=== PATIENT | male | born 1980 | race Hispanic/Latino ===

== ENCOUNTER 2022-11-26 12:51 | Emergency (ER) | payer SELFPAY ==
[2022-11-26] MEDS ORDERED: FLUORESCEIN SODIUM 1 MG/WRAP ONE (13:13)
[2022-11-26] MEDS ORDERED: TETRACAINE HCL 0.5% 4ML OPTH ONE (13:13)
--- NOTE | 2022-11-26 13:38 | ER ---
Nurse's Notes [facility] Name: Moe Sanford Age: 42 yrs Sex: Male : 1980 Arrival Date: 11/26/2022 Time: 12:51 Bed 12 Private MD: Diagnosis: Injury of conjunctiva and corneal abrasion without foreign body, right eye Presentation: 11/26 13:02 Chief complaint: Patient states: Piece of metal on wood hit his R eye yesterday at 6 ll1 PM. Redness, pain, irritation, draining clear liquid since. No fever. Coronavirus screen: Vaccine status: Patient reports being unvaccinated. Client denies travel out of the [place] in the last 14 days. At this time, the client does not indicate any symptoms associated with coronavirus-19. Ebola Screen: Patient denies travel to an Ebola-affected area in the 21 days before illness onset. Initial Sepsis Screen: Does the patient meet any 2 criteria? No. Patient's initial sepsis screen is negative. Does the patient have a suspected source of infection? Yes: Other: eye. Risk Assessment: Do you want to hurt yourself or someone else? Patient reports no desire to harm self or others. Onset of symptoms was November 25, 2022. 13:02 Method Of Arrival: Ambulatory ll1 13:02 Acuity: KATHYA 2 ll1 Triage Assessment: 13:04 General: Appears uncomfortable, Behavior is calm, cooperative, appropriate for age. ll1 Pain: Complains of pain in right eye Pain currently is 5 out of 10 on a pain scale. Quality of pain is described as aching. EENT: Eyes are tearing on outer aspect of conjuctiva of right eye, iris of right eye and inner aspect of conjuctiva of right eye redness. Reports pain in right eye. Historical: - Allergies: 13:03 No Known Allergies; ll1 - PMHx: 13:03 None; ll1 - PSHx: 13:03 None; ll1 - Immunization history:: Adult Immunizations up to date. - Social history:: Smoking status: Patient reports the use of cigarette tobacco products, smokes one-half pack cigarettes per day. Screenin:10 [facility] ED Fall Risk Assessment (Adult) Score/Fall Risk Level 0 - 2 = Low Risk ll1 Oriented to surroundings, Maintained a safe environment, Educated pt \T\ family on fall prevention, incl call for assistance when getting out of bed, Hourly rounding (assess needs \T\ fall precautionary measures) done. Abuse screen: Denies threats or abuse. Nutritional screening: No deficits noted. Tuberculosis screening: No symptoms or risk factors identified. Assessment: 13:45 General: Appears uncomfortable, Behavior is calm, cooperative. Neuro: Level of kd3 Consciousness is awake, alert, obeys commands, Oriented to person, place, time, situation. Respiratory: Airway is patent Trachea midline Respiratory effort is even, unlabored, Respiratory pattern is regular, symmetrical. Vital Signs: 13:02 BP 142 / 96; Pulse 72; Resp 16; Temp 97.9; Pulse Ox 98% ; Weight 77.11 kg; Height 5 ft. ll1 7 in. ; Pain 5/10; 13:46 BP 140 / 81; Pulse 74; Resp 19; Pulse Ox 99% on R/A; kd3 13:02 Body Mass Index 26.63 (77.11 kg, 170.18 cm) ll1 13:02 Pain Scale: Adult ll1 Visual Acuity: 13:09 Left Eye Visual acuity 20/40, ; Right Eye Visual acuity 20/70, ; Both Eyes Visual ll1 acuity 20/40; Without Lenses; ED Course: 12:53 Patient arrived in ED. rg4 12:57 [facility]C [facility] kb 12:57 Oneil Rogers MD is Attending Physician. kb 12:57 Genaro Estevez DO is Attending Physician. kb 13:02 Ti Stroud, CHRISTINE is Primary Nurse. ll1 13:03 Triage completed. ll1 13:04 Arm band placed on Patient placed in an exam room, on a stretcher. ll1 13:10 Patient has correct armband on for positive identification. Bed in low position. Call ll1 light in reach. Side rails up X 1. 13:46 Provided Education on: eye drops. kd3 13:46 No provider procedures requiring assistance completed. Patient did not have IV access kd3 during this emergency room visit. Administered Medications: 13:39 Drug: Tetracaine Ophthalmic Drops 0.5 % 1 drops Ophthalmic once Route: Ophthalmic; kd3 Site: both eyes; Medication: 13:10 VIS not applicable for this client. ll1 Outcome: 13:38 Discharge ordered by MD. villarreal 13:46 Discharged to home ambulatory, kd3 13:46 Condition: stable 13:46 Discharge instructions given to patient, family, Instructed on discharge instructions, follow up and referral plans. medication usage, Demonstrated understanding of instructions, follow-up care, Prescriptions given X 1, 13:46 Patient left the ED. kd3 Signatures: Amisha Han, HOME HEALTH CARE COORDINATOR-C HOME HEALTH CARE COORDINATOR-Amber Rod rg4 Ti Stroud RN RN ll1 Sigrid Ornelas RN RN kd3 Corrections: (The following items were deleted from the chart) 13:04 13:03 PMHx: Unable to Obtain; ll1 ll1
--- NOTE | 2022-11-26 13:38 | EDPHYS ---
Physician Documentation [facility] Name: Moe Sanford Age: 42 yrs Sex: Male : 1980 Arrival Date: 11/26/2022 Time: 12:51 Bed 12 Private MD: ED Physician Genaro Estevez HPI: 11/26 13:40 This 42 yrs old Male presents to ER via Ambulatory with complaints of Eye kb Problem. 13:40 The patient is experiencing pain, redness, The patient sustained a scratch, to the kb right eye, caused by metal fragment. Onset: The symptoms/episode began/occurred yesterday. Duration: the symptoms are continuous. Aggravated by nothing. Alleviated by nothing. Associated signs and symptoms: Pertinent positives: None. Severity of symptoms: At their worst the symptoms were moderate in the emergency department the symptoms are unchanged. The patient has not experienced similar symptoms in the past. The patient has not recently seen a physician. Pt reports a piece of metal hit him in the right eye yesterday while at work. States he has had pain, redness and blurry vision since then. Historical: - Allergies: 13:03 No Known Allergies; ll1 - PMHx: 13:03 None; ll1 - PSHx: 13:03 None; ll1 - Immunization history:: Adult Immunizations up to date. - Social history:: Smoking status: Patient reports the use of cigarette tobacco products, smokes one-half pack cigarettes per day. ROS: 13:39 Constitutional: Negative for fever, chills, and weight loss, kb 13:39 Eyes: Positive for blurry vision, pain, redness, 13:39 All other systems are negative, Exam: 13:39 Constitutional: This is a well developed, well nourished patient who is awake, alert, kb and in no acute distress. Head/Face: Normocephalic, atraumatic. ENT: Moist Mucous membranes Cardiovascular: Regular rate Respiratory: Respirations even and unlabored. No increased work of breathing. Talking in full sentences Skin: Warm, dry with normal turgor. Normal color. MS/ Extremity: Pulses equal, no cyanosis. Neurovascular intact. Full, normal range of motion. Neuro: Awake and alert, GCS 15, oriented to person, place, time, and situation. Moves all extremities. Normal gait. 13:39 Eyes: Periorbital structures: appear normal, Pupils: equal, round, and reactive to light and accomodation, Extraocular movements: intact throughout, Conjunctiva: injected, in the right eye, Corneas: abrasion, that is moderate sized, on the right, foreign body, is not appreciated, a fluorescein strip employed to appreciate the findings, Vital Signs: 13:02 BP 142 / 96; Pulse 72; Resp 16; Temp 97.9; Pulse Ox 98% ; Weight 77.11 kg; Height 5 ft. ll1 7 in. ; Pain 5/10; 13:46 BP 140 / 81; Pulse 74; Resp 19; Pulse Ox 99% on R/A; kd3 13:02 Body Mass Index 26.63 (77.11 kg, 170.18 cm) ll1 13:02 Pain Scale: Adult ll1 Visual Acuity: 13:09 Left Eye Visual acuity 20/40, ; Right Eye Visual acuity 20/70, ; Both Eyes Visual ll1 acuity 20/40; Without Lenses; MDM: 12:57 Patient medically screened. kb 13:39 Differential diagnosis: Corneal abrasion of Corneal ulcer of Foreign body in Acute kb iritis of Acute glaucoma in Data reviewed: vital signs, nurses notes. Counseling: I had a detailed discussion with the patient and/or guardian regarding the historical points, exam findings, and any diagnostic results supporting the discharge/admit diagnosis, the need for outpatient follow up, an opthalmologist, to return to the emergency department if symptoms worsen or persist or if there are any questions or concerns that arise at home. 11/26 13:04 Order name: Eye Tray; Complete Time: 13:04 kb 11/26 13:04 Order name: Fluoresene Opth strip; Complete Time: 13:04 kb 11/26 13:04 Order name: Visual Acuity; Complete Time: 13:09 kb Administered Medications: 13:39 Drug: Tetracaine Ophthalmic Drops 0.5 % 1 drops Ophthalmic once Route: Ophthalmic; kd3 Site: both eyes; Disposition: 13:51 I was immediately available on-site in the Emergency Department for consultation in the ms3 care of the patient. Disposition Summary: 11/26/22 13:38 Discharge Ordered Notes: Location: Home kb Condition: Stable kb Diagnosis - Injury of conjunctiva and corneal abrasion without foreign body, right eye kb Followup: kb - With: Emergency Department - When: As needed - Reason: Worsening of condition Followup: kb - With: Private Physician - When: 2 - 3 days - Reason: Recheck today's complaints, Continuance of care, Re-evaluation by your physician Discharge Instructions: - Discharge Summary Sheet kb - Corneal Abrasion, [id number] kb Forms: - Medication Reconciliation Form kb - Thank You Letter kb - Antibiotic Education kb - Prescription Opioid Use kb - Patient Portal Instructions kb - Leadership Thank You Letter kb Prescriptions: - Vigamox 0.5 % Ophthalmic Drops - instill 1 drop OPHTHALMIC route every 8 hours for 7 days; 5 milliliter; kb Refills: 0, Product Selection Permitted Signatures: Amisha Han, CANOPY STRINGER-C CANOPY STRINGER-Ti Stephens, RN RN ll1 Genaro Estevez DO DO ms3 Sigrid Ornelas RN RN kd3 Corrections: (The following items were deleted from the chart) 13:04 13:03 PMHx: Unable to Obtain; ll1 ll1
[2022-11-26 14:10] VITALS: BP 140/81; O2SAT 99
[2022-11-26 14:11] VITALS: TEMP 97.9
== END 2022-11-26 13:46 | disposition home or self-care (01) ==
LOC: ER 12:51
DX: S05.01XA Injury of conjunctiva and corneal abrasion without foreign body, right eye, initial encounter (principal)
CPT/HCPCS: 99283